=== PATIENT | female | born 1975 | race Caucasian/White ===

== ENCOUNTER 2024-12-22 15:00 | Emergency (ER) | payer OTHER, MEDICARE, SELFPAY ==
[2024-12-22 15:04] VITALS: BP 198/121
--- NOTE | 2024-12-22 17:14 | ED.GENMED ---
History of Present Illness
General
Chief Complaint: Musculo-Skeletal Complaint
Source: patient
Exam Limitations: none
Time Seen by Provider: 12/22/24 16:03
Nursing documentation reviewed up to this point in time: agreed with
History of Present Illness
History of Present Illness:
Patient is a 49-year-old female with a history of C4-C6 anterior cervical fusion, bilateral carpal tunnel repair, chronic pain presents to the ER for evaluation. [facility] She was scheduled to
have an appointment today but went the wrong way and presented here. She complains of pain to her left lateral neck which now radiates down her left arm. She denies any injury. She is on Topamax gabapentin ibuprofen Tylenol and topiramate along
with tizanidine.
She denies any weakness , numbness/tingling.
Past History
Past History
ED Past Medical History: None
ED Past Surgical History: Orthopedic and Other (Breast augmentation)
Social History
Tobacco: Non-smoker
Alcohol: None
Personal: Single
Living: alone
Employment: Not employed
Family History
Family History: Other (Noncontributory)
Phy Exam
General Physical Exam
General Presentation: no apparent distress
General age: appears stated age
General Skin: warm and dry
General Habitus: normal
General Mental: alert
General Hydration: appears well hydrated
Neurological Exam
Neurological Exam: alert, oriented x3 and other (Intact strength and sensation to bilateral upper extremities)
Musculoskeletal Exam
Musculoskeletal Exam: other (Full range of motion to neck mildly tender to left upper trapezius region)
Skin Exam
Skin Exam: normal color and warm/dry
Psychiatric Exam
Psychiatric Exam: normal mood/affect
Course
Orders/Labs/Results
Orders:
Orders
12/22/24 16:58
Vital Signs- Treatment ONCE
Frequency: Once
12/22/24 17:14
Dexamethasone Sod Phosphate [Decadron] 10 mg IM NOW STA
12/22/24 17:32
Ketorolac [Toradol] 30 mg IM NOW STA
12/22/24 17:33
Ketorolac [Toradol] 30 mg .ROUTE .STK-MED ONE
Vital Signs
Initial and Last Documented VS:
Initial Vital Signs
Temp Pulse Resp BP Pulse Ox
98.0 F 98 18 198/121 97
12/22/24 15:04 12/22/24 15:04 12/22/24 15:04 12/22/24 15:04 12/22/24 15:04
Last Documented Vital Signs
Temp Pulse Resp BP Pulse Ox
98.0 F 83 18 181/107 97
12/22/24 15:04 12/22/24 18:15 12/22/24 18:15 12/22/24 18:15 12/22/24 18:15
MDM/Problems Addressed
Differential Diagnosis Includes:
Not limited to cervical radiculopathy
MDM/Problems Addressed:
Patient is a 49-year-old female who has a chronic pain managed at chronic pain facility presents to the ER with complaints of left-sided neck pain rating down her left arm. She denies any weakness and on exam has no obvious weakness. She is on
Topamax gabapentin ibuprofen Tylenol topiramate. She had an appointment today with her chronic pain specialist but missed it and presented here. Symptoms are consistent with radiculopathy however she has no weakness on exam and no acute distress.
Patient was given IM Decadron IM Toradol I was planning on discharging patient with steroid Dosepak however patient left prior to full disposition. She does report she has a history of hypertension however has not prescribed medication and is in
the process of getting a new family doctor. Her blood pressure has been elevated she reports she is under a lot of family stress however she denies any headache or vision chest pain or shortness of breath.
Chronic conditions affecting care:
Chronic pain followed by pain management
*Pulse Oximetry
SaO2: 97
Oxygen Mode of Delivery: Room air
Patient hypoxic: no
*Critical Care Note
Total Time (30-74mins, 75-104mins- exclusive of procedures): Not Applicable
ED Attending Note
-
Portions of this chart may have been created with voice recognition software.� Occasional wrong word or��sound alike� substitutions may have occurred due to the inherent limitations of voice recognition software.
Discharge Plan
Departure
Patient Disposition: [facility]
Date of Disposition: 12/22/24
Time of Disposition: 18:31
Patient with high blood pressure during this ER visit?: Yes
Condition: Fair
Covid-19: Not Applicable
Discharge Problem:
Cervical radiculopathy
Referrals:
Stephen Olvera DO [Family Provider, Family Practice]
Interventions
Interventions:
*Risk Screen - Suicide Last Done: 12/22/24 15:06
*General Assessment Last Done: 12/22/24 15:06
*Neglect/Abuse Screening Last Done: 12/22/24 15:06
*ED- Fall Risk Assessment Last Done: 12/22/24 15:06
*ED COVID-19 Vaccine History Last Done: 12/22/24 18:15
*Nursing Disposition Last Done: 12/22/24 18:15
ED-Musculoskeletal Assessment Last Done: 12/22/24 17:20
Discharge Date and Time
Discharge Date/Time: 12/22/24 18:15
Print Language: POLISH
[2024-12-22] MEDS: DECADRON 10 MG IM (17:24)
[2024-12-22] MEDS: TORADOL 30 MG IM (17:34)
[2024-12-22 18:15] VITALS: BP 181/107
== END 2024-12-22 18:15 | disposition left against medical advice (07) ==
LOC: EMR 15:00
PROVIDERS: EMERGENCY PHYSICIAN Emergency Medicine; FAMILY PHYSICIAN Family Medicine
DX: M54.12 Radiculopathy, cervical region (principal); G89.29 Other chronic pain; I10 Essential (primary) hypertension; Z63.8 Other specified problems related to primary support group; Z98.1 Arthrodesis status
CPT/HCPCS: 96372; 99284

== ENCOUNTER 2025-05-25 19:02 | Emergency (ER) | payer OTHER, SELFPAY ==
[2025-05-25 19:03] VITALS: BP 200/128
[2025-05-25 19:35] LABS: Hematocrit 44.6 % (37.0-47.0); Hemoglobin 15.3 g/dL (12.0-16.0); Mean Corp Hgb Conc. 34.3 g/dL (33.0-37.0); Mean Corpuscular Volume 94.1 fL (81.0-99.0); Nucleated Red Blood Cells % 0 %; Platelet Count 261 10^3/uL (130-400); Red Cell Dist. Width 11.5 % (11.5-14.5)
[2025-05-25 19:47] LABS: ALT (SGPT) 19 U/L (0-35); AST (SGOT) 24 U/L (14-36); Albumin 4.4 g/dl (3.5-5.0); Alkaline Phosphatase 63 U/L (38-126); Blood Urea Nitrogen 19 mg/dl (7-17); Calcium 9.6 mg/dl (8.4-10.2); Carbon Dioxide 25 mmol/L (22-30); Chloride 104 mmol/L (98-107); Glucose 82 mg/dl (70-99); Potassium 3.6 mmol/L (3.5-5.1); Sodium 134 mmol/L (135-145); Total Protein 6.7 g/dl (6.3-8.2); eGFR > 60.00
[2025-05-25 19:48] VITALS: BP 182/106
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
[2025-05-25 20:40] VITALS: BP 164/110
[2025-05-25] MEDS: TORADOL 30 MG IM (21:07)
[2025-05-26 02:00] VITALS: BP 172/86
[2025-05-26 03:00] VITALS: BP 154/90
== END 2025-05-26 04:05 ==
LOC: EMR 19:02
PROVIDERS: Emergency Medicine; EMERGENCY PHYSICIAN Emergency Medicine; FAMILY PHYSICIAN Family Medicine
DX: F22 Delusional disorders (principal); F41.9 Anxiety disorder, unspecified; M19.90 Unspecified osteoarthritis, unspecified site
CPT/HCPCS: 99285; 96372; 80053; 82077; 84443; 85025; 93005